=== PATIENT | female | born 1955 | race Caucasian/White ===

== ENCOUNTER 2025-02-16 12:38 | Day surgery (SDC) | payer MEDICARE ==
[2025-02-09 13:58] LABS: MEAN PLATELET VOLUME 8.0 FL (7.4-10.4); PRE OP HEMATOCRIT 44.6 % (35.0-45.0); PRE OP HEMOGLOBIN 15.1 g/dL (12.0-16.0); PRE OP PLATELET COUNT 305 X10'3 (140-440); PRE OP WHITE BLOOD COUNT 9.4 10'3 (4.8-10.8); RED CELL DISTRIBUTION WIDTH 13.8 % (11.5-14.5)
[2025-02-09 14:13] LABS: CREATININE 1.07 MG/DL (0.40-0.90); PRE OP ALT 10 U/L (30-65); PRE OP ANION GAP 6 (8-16); PRE OP AST 8 U/L (10-37); PRE OP BILIRUB, TOTAL 0.8 MG/DL (0.0-1.0); PRE OP GLUCOSE 104 MG/DL (70-104); PRE OP POTASSIUM 3.9 MMOL/L (3.4-5.1); PRE OP SODIUM 141 MMOL/L (135-145); TOTAL CARBON DIOXIDE 30.5 MMOL/L (24-32); eGFR 51 ML/MIN
[~2025-02-16] VITALS: Ht 162.6 cm; Wt 89.8 kg
[2025-02-16] VITALS (11 sets, daily range): BP systolic 172–222; BP diastolic 85–107; PULSE 62–71; RESP 12–19; TEMP 97.3; O2SAT 93–100
[2025-02-16] MEDS: DOCUMENT DATE & TIME OF BETA-BLOCKER PO ONE (09:00)
[~2025-02-16 12:38] MED LIST: ASPI-1397 PO; COQ10 PO; HYDR100T12 PO; LIDOcaine 1%/PF 5ML 10 MG/ML VIAL ONE; LOSA100T58 PO; MAVA5CAP PO; METO50TA16 PO; ROSU10TA98 PO; dexamethasone sod phosphate 4mg/ml inj. ONE; metoclopramide 5 mg/ml inj ONE; ondansetron/PF 4mg/2ml inj ONE; propofol inj 0 ML IV ONE
[2025-02-16] MEDS: ceFAZolin 2gm/dext,iso 50mL 50 ML IV ONE (13:21)
[2025-02-16] MEDS: ringers solution, lacted 1,000 ML IV SCH (13:21)
[2025-02-16] MEDS ORDERED: iohexol 300 MG/1 ML 50ml polymer ONE (13:25)
[2025-02-16] MEDS ORDERED: HYDROmorphone/PF 0.2 MG/ML SYRINGE IV PRN ×2 (13:25)
[2025-02-16] MEDS ORDERED: ondansetron/PF 4mg/2ml inj IV PRN (13:25)
[2025-02-16] MEDS ORDERED: fentaNYL/PF 50MCG/1 ML 2ML syringe IV PRN ×2 (13:25)
[2025-02-16] MEDS ORDERED: labetalol 20mg/4ml (5mg/ml) syringe IV PRN (13:25)
[2025-02-16] MEDS ORDERED: ringers solution, lacted 1,000 ML IV SCH (13:25)
[2025-02-16] MEDS ORDERED: morphine 4 MG/ML inj SYRINge IV PRN (13:25)
[2025-02-16] MEDS ORDERED: midazolam 1 mg/ML 2ml injection ONE (13:36)
[2025-02-16] MEDS ORDERED: fentaNYL/PF 50MCG/1 ML 2ML syringe ONE (13:37)
[2025-02-16] MEDS ORDERED: propofol inj 20 ML IV ONE (13:37)
[2025-02-16] MEDS ORDERED: ondansetron/PF 4mg/2ml inj ONE ×2 (13:37→15:25)
[2025-02-16] MEDS: enalaprilat 1.25mg/ml 2ml vial IV PRN (15:40)
[2025-02-16] MEDS ORDERED: hydrALAZINE 20mg/ml inj. IV ONE (15:55)
--- NOTE | 2025-02-16 19:57 | OPERATIVE REPORT ---
Operative Report Providers to CC ~ Date of Procedure: Feb 16, 2025 Pre-Operative Diagnosis: right kidney stone, malrotated right kidney Post-Operative Diagnosis SAME as PRE-Op Procedure Performed cystoscopy, right retrograde pyelogram, right ureteroscopy, laser lithotripsy, steerable vacuum stone extraction, basket stone extraction, right ureteral stent exchange Surgeon: Ángela Davis MD Washer And Capper Machine Operator none Anesthesiologist: Main Rodgers Type of Anesthesia: General Findings: malrotated right kidney with moderate-severe hydronephrosis multiple kidney stones in the right lower and mid pole calyces Complications none Prosthetics\Implants used: right 6Fr x 24cm ureteral stent Estimated Blood Loss: 0cc Specimen Removed: right kidney stone for stone analysis Description of Procedure: Informed consent was obtained. Patient was taken to the OR and general anesthesia was administered. Patient placed in dorsal lithotomy position. Genitals were prepped and draped in usual fashion. A 22Fr rigid cystoscope was inserted into the urethral meatus and advanced into the bladder. The bladder mucosa was examined thoroughly in a 360 degree fashion. The distal coil of the indwelling right ureteral stent was visualized with moderate encrustation. A special needs bus driver film was taken over the right kidney and ureter, and the stent appeared to be in good position. The kidney stones were not easily visualized. A stent grasper was used to remove the right ureteral stent from the bladder. A guidewire was passed through the lumen of the stent and into the right ureter. A 5Fr open ended ureteral catheter was placed into the right ureter over the guidewire. Contrast dye was injected for right retrograde pyelogram, demonstr ating a normal caliber ureter with a malrotated kidney and moderate-severe right hydronephrosis with a dilated renal pelvis and renal calyces. The guidewire was replaced into the right ureter. A semi-rigid ureteroscope was advanced into the right ureter alongside the guidewire. There were no stone fragments seen in the ureter. A second guidewire was placed and the semi-rigid ureteroscope was removed. The 12-14Fr ureteral access sheath was advanced over the guidewire under fluoroscopic guidance to the level of the UPJ. The CVAC flexible ureteroscope was placed into the right kidney. The renal calyces were examined. Residual stone fragments were identified in the right lower pole and mid pole calyces. Due to significant malrotation of the kidney, the lower pole calyces were difficult to access. The Thulium laser was used to fragment the stones into tiny pieces. The CVAC steerable vacuum was used to extract the stone fragments. There were several stone fragments in the lower pole calyces which were difficult to fragment due to difficulty maintaining the position of the laser in the lower pole calyces. The fragments appeared relatively small, about 1-3mm in size, but the steerable vacuum could not successfully pull all of the fragments from their position in the calyces. I then elected to try the 0 tip Nitinol stone basket. Several of the stone fragments were removed using the stone basket. However, there were approximately 4-5 tiny stone fragments that could not be evacuated with either the steerable vacuum or the stone basket due to difficulty accessing their location in the lower pole calyces. After prolonged attempts, I elected to con clude the procedure. The remaining stone fragments did appear that they were likely small enough to pass spontaneously. The ureteroscope and ureteral access sheath were removed while examining the ureter on the way out. There were no stone fragments remaining in the ureter. A 6Fr x 24cm right ureteral stent was placed over the guidewire under fluoroscopic guidance. Good positioning of the stent was confirmed with proximal coil seen in the kidney on fluoroscopic imaging and distal coil visualized directly within the bladder. The bladder was emptied at the conclusion of the procedure. All stone fragments were sent to pathology for stone analysis. The patient tolerated the procedure well without any immediate complications. She was transferred to the recovery room in stable position. Plan: Follow up in 1-2 weeks for stent removal. Counts repoted as correct: Yes ÁNGELA DAVIS MD Feb 16, 2025 19:57
--- NOTE | 2025-02-17 18:54 | PATHOLOGY REPORT ---
[facility] [address] [place] [address] SURGICAL PATHOLOGY REPORT CaseNumber: [id number] Surgeon:Ángela Benton M.D. CLINICAL INFORMATION CLINICAL INFORMATION: Ureteral stone. DIAGNOSIS DIAGNOSIS: STONE, RIGHT URETER; LITHOTOMY - ENTIRELY SUBMITTED TO [facility]) FOR ANALYSIS. MICROSCOPIC DESCRIPTION MICROSCOPIC DESCRIPTION: Not performed. (st) GROSS DESCRIPTION GROSS DESCRIPTION: Received without fixative labeled with the patients name, number, and "ureteral stone fragments" is a 0.7 cm aggregate of irregularly shaped pieces of machado stone. The specimen is submitted to [facility] for stone analysis which will be reported separately. (meb) Electronically signed by: Justice Galvan M.D. [id number]
== END 2025-02-16 16:45 | disposition home or self-care (01) ==
LOC: PAS 12:38
PROVIDERS: ATTEND Student in an Organized Health Care Education/Training Program
DX: N20.0 Calculus of kidney (principal); I10 Essential (primary) hypertension; E11.9 Type 2 diabetes mellitus without complications; E78.5 Hyperlipidemia, unspecified; F41.9 Anxiety disorder, unspecified; I25.2 Old myocardial infarction; Z87.891 Personal history of nicotine dependence; Z87.440 Personal history of urinary (tract) infections; Z79.82 Long term (current) use of aspirin; Z79.899 Other long term (current) drug therapy; Z90.49 Acquired absence of other specified parts of digestive tract; Z90.5 Acquired absence of kidney; Z98.51 Tubal ligation status; Z98.891 History of uterine scar from previous surgery; Z98.890 Other specified postprocedural states; Z88.5 Allergy status to narcotic agent; Z88.8 Allergy status to other drugs, medicaments and biological substances
CPT/HCPCS: 36415; 52356; 74420; 80053; 82948; 85025; 88300; A4618; A7000; C1747; C2617; J2250; J2405; J2704; J3010; J3490; J7030; J7120; Q9967; Z7506; Z7508; Z7512; Z7610; 76000; J1100; J2765